=== PATIENT | male | born 1975 | race African-American/Black ===

== ENCOUNTER 2017-08-14 18:53 | Emergency (ER) | payer SELFPAY ==
[~2017-08-14] VITALS: Ht 190.5 cm; Wt 102.1 kg
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
[2017-08-14] MEDS ORDERED: TETANUS AND DIPHTHERIA TOX/PF 0.5 ML VIAL. VAX IM ONE (19:15)
[2017-08-14] MEDS ORDERED: LIDOCAINE 2% 20 ML VIAL. IJ ONE ×3 (19:15→20:30)
[2017-08-14] MEDS ORDERED: IV RINGERS SOLUTION,LACTATED 1,000 ML IV SCH (19:15)
[2017-08-14] MEDS ORDERED: BUPIVACAINE MPF 0.5% 30 ML VIAL. SQ ONE ×2 (19:15→20:30)
[2017-08-14] MEDS ORDERED: cefTRIAXone IV Push 1 GM VIAL. IVP ONE (19:30)
--- NOTE | 2017-08-14 19:35 | EKG ---
[address] [address] Test Date: 2017-08-14 Test Time: 19:30:48 Pat Name: CATALINO TORRES Department: Room: Gender: M [employer] Associate: JORGE LUIS : 1975 Requested By: MARK DAMIAN Order Number: [id number] Reading MD: Measurements Intervals [place] Rate: 67 P: 58 WI: 158 QRS: -42 QRSD: 94 T: 46 QT: 340 QTc: 362 Interpretive Statements SINUS RHYTHM ABNORMAL LEFT AXIS DEVIATION LEFT ANTERIOR FASCICULAR BLOCK ABNORMAL ECG RI6.01 No previous ECG available for comparison
[2017-08-14 19:36] LABS: BASO % 1 % (0-3); EOS # 0.1 x10^3/uL (0.0-0.7); EOS % 1 % (0-3); HEMATOCRIT 45.7 % (39.0-53.0); HEMOGLOBIN 15.5 g/dL (13.0-17.5); LYMPH # 3.1 x10^3/uL (1.0-4.8); LYMPH % 42 % (24-48); MEAN CORPUSCULAR HEMOGLOBIN 28 pg (25-35); MEAN CORPUSCULAR HGB CONC 34 g/dL (31-37); MEAN CORPUSCULAR VOLUME 83 fL (79-100); MONO # 0.6 x10^3/uL (0.0-1.1); MONO % 8 % (0-9); NEUT # 3.6 x10^3uL (1.8-7.7); NEUT % 49 % (31-73); PLATELET COUNT 194 x10^3/uL (140-400); RED BLOOD COUNT 5.54 x10^6/uL (4.30-5.70); RED CELL DISTRIBUTION WIDTH 13.9 % (11.5-14.5); WHITE BLOOD COUNT 7.4 x10^3/uL (4.0-11.0)
[2017-08-14 19:45] LABS: AMPHETAMINE/METHAMPHETAMINE NEG (NEG); BARBITURATES NEG (NEG); BENZODIAZEPINES NEG (NEG); CANNABINOIDS NEG (NEG); COCAINE NEG (NEG); METHADONE NEG (NEG); OPIATES NEG (NEG); PHENCYCLIDINE NEG (NEG)
[2017-08-14 19:49] LABS: ALBUMIN 3.7 g/dL (3.4-5.0); CALCIUM 8.6 mg/dL (8.5-10.1); CREATININE 1.2 mg/dL (0.7-1.3); DIRECT BILIRUBIN 0.1 mg/dL (0.0-0.2); GFR 66.7; POTASSIUM 3.3 mmol/L (3.5-5.1); TOTAL BILIRUBIN 0.3 mg/dL (0.2-1.0); TOTAL PROTEIN 7.5 g/dL (6.4-8.2)
[2017-08-14 19:50] LABS: BILIRUBIN,URINE NEG (NEG); CLARITY,URINE CLEAR; COLOR,URINE YELLOW; GLUCOSE,URINE NEG (NEG); NITRITE,URINE NEG (NEG); UROBILINOGEN,URINE 0.2 mg/dL (0.2 mg/dL)
[2017-08-14 19:51] LABS: BACTERIA,URINE 0 /HPF (0-FEW); SQUAMOUS EPITHELIAL CELL,UR FEW /LPF
[2017-08-14 19:55] VITALS: BP 154/75
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
[2017-08-14] MEDS ORDERED: MORPHINE SULFATE 10 MG/ML SYRINGE. ONE (21:02)
[2017-08-14] MEDS ORDERED: MORPHINE SULFATE 10 MG/ML SYRINGE. SQ ONE (21:15)
[2017-08-14] MEDS ORDERED: CEPH-264 PO (21:30)
[2017-08-14] MEDS ORDERED: OXYC-323 PO (21:30)
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
== END 2017-08-14 19:55 | disposition home or self-care (01) ==
LOC: EEVIPCON 18:53 → ER 18:53
DX: S01.80XA Unspecified open wound of other part of head, initial encounter (principal); X95.8XXA Assault by other firearm discharge, initial encounter; Y93.89 Activity, other specified; Y99.8 Other external cause status; Y92.89 Other specified places as the place of occurrence of the external cause
CPT/HCPCS: 36415; 70450; 70486; 71046; 72125; 80048; 80076; 80307; 81001; 83605; 85025; 85610; 85730; 86850; 86900; 86901; 90471; 90714; 93005; 96372; 96374; 96375; 96376; 99285; G0480; J0696; J2270; J3010; J7120; G0479

== ENCOUNTER 2017-08-17 16:09 | Emergency (ER) | payer SELFPAY ==
[~2017-08-17] VITALS: Ht 190.5 cm; Wt 102.1 kg
[2017-08-17 16:09] VITALS: BP 159/72
[~2017-08-17 16:09] MED LIST: CEPH-264 PO; OXYC-323 PO
[2017-08-17] MEDS ORDERED: CLINDAMYCIN 900MG PREMIX 50 ML IV ONE (17:15)
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
[2017-08-17 17:49] LABS: BASO # 0.1 x10^3/uL (0.0-0.2); BASO % 1 % (0-3); EOS # 0.1 x10^3/uL (0.0-0.7); EOS % 1 % (0-3); HEMATOCRIT 37.6 % (39.0-53.0); HEMOGLOBIN 12.7 g/dL (13.0-17.5); LYMPH % 26 % (24-48); MEAN CORPUSCULAR HEMOGLOBIN 28 pg (25-35); MEAN CORPUSCULAR HGB CONC 34 g/dL (31-37); MEAN CORPUSCULAR VOLUME 83 fL (79-100); MONO # 0.7 x10^3/uL (0.0-1.1); MONO % 9 % (0-9); NEUT # 4.7 x10^3uL (1.8-7.7); NEUT % 63 % (31-73); PLATELET COUNT 187 x10^3/uL (140-400); RED BLOOD COUNT 4.51 x10^6/uL (4.30-5.70); RED CELL DISTRIBUTION WIDTH 14.1 % (11.5-14.5); WHITE BLOOD COUNT 7.5 x10^3/uL (4.0-11.0)
[2017-08-17 18:02] LABS: CALCIUM 8.8 mg/dL (8.5-10.1); CREATININE 1.2 mg/dL (0.7-1.3); GFR 80.7; POTASSIUM 3.5 mmol/L (3.5-5.1)
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
== END 2017-08-17 18:40 | disposition home or self-care (01) ==
LOC: ER 16:09
DX: L02.01 Cutaneous abscess of face (principal); S01.80XD Unspecified open wound of other part of head, subsequent encounter; W34.09XD Accidental discharge from other specified firearms, subsequent encounter
CPT/HCPCS: 36415; 70110; 80048; 83605; 85025; 87040; 87070; 96365; 99285; J3490